=== PATIENT | male | born 1975 | race Caucasian/White ===

== ENCOUNTER → 2023-03-24 10:20 | Outpatient (BNVA) | payer OTHER, SELFPAY | PROVIDERS: Family Provider Nurse Practitioner; PCP Nurse Practitioner; Referring Provider Family Medicine; Visit Provider Surgery | DX: Z12.11 Encounter for screening for malignant neoplasm of colon (principal) | CPT/HCPCS: 99203 ==

== ENCOUNTER 2023-06-25 09:34 | Day surgery (SDC) | payer OTHER, SELFPAY ==
[2023-06-25 09:51] VITALS: BP 157/93; PULSE 79; RESP 18; TEMP 36.8; O2SAT 99; BMI 34.5
[2023-06-25] MEDS: sodium chloride 0.9% 1,000 ML 30 ML IV (09:56)
--- NOTE | 2023-06-25 10:00 | ANES.PREANE2 ---
Pre-Anesthetic Assessment Height/Weight: Height 1.68 m Weight 97.069 kg Temp Pulse Resp BP Pulse Ox O2 Del Method 98.2 F 79 18 157/93 99 Room Air 06/25/23 09:51 06/25/23 09:51 06/25/23 09:51 06/25/23 09:51 06/25/23 09:51 06/25/23 09:51 Preop Diagnosis: need for colon cancer screening Operation Date: 06/25/23 11:00 Proposed Procedures p [id number] colon G0121 screen colon A risk Z12.11(Not Applicable) - Chuy Paredes MD Familial anesthetic complications: None Was Beta Blanca taken within 24 hours: N/A Was Clonidine taken within 24 hours: N/A Last intake: Intake Last Liquid Date 06/24/23 Last Liquid Time 23:45 Last Solid Date 06/23/23 Last Solid Time 18:30 Social No alcohol and No tobacco Exam alert, oriented x 3 and regular rate & rhythm Airway Mallampati: Class II Dentition: full History/ROS No significant history except as noted Pulmonary None reported CV/HEM Hypertension None reported Hepatic None reported GI Gastroesophageal Reflux Disease (occasional, related to diet) Metabolic None reported Musc/skel None reported Neuropsych None reported Anesthetic Plan ASA status: 2 Anesthesia: Anesthesia Evaluation and MAC Risk of > 500 ml blood loss (7ml/kg in children): No Medications/Allergies Home Medications Medication Instructions Recorded Confirmed Last Taken Type fexofenadine 30 mg tablet 120 mg PO Q24H 06/25/23 06/25/23 06/23/23 History garlic 300 mg PO DAILY 06/25/23 06/25/23 06/23/23 History multivitamin 1 tab PO DAILY 06/25/23 06/25/23 06/23/23 History zinc 10 mg tablet 10 mg PO DAILY 06/25/23 06/25/23 06/23/23 History Allergies Allergy/AdvReac Type Severity Reaction Status Date / Time shellfish derived Allergy swelling Verified 06/23/23 08:41 Current Medications Generic Name Dose Route Start Last Admin Trade Name Freq PRN Reason Stop Dose Admin Sodium Chloride 1,000 mls @ 30 mls/hr 06/25/23 09:45 06/25/23 09:56 Sodium Chloride 0.9% IV 30 mls/hr .Q24H SHAMAR Administration PFSH Anesthesia Medical History Allergic rhinitis due to allergen Acute pharyngitis Social History Smoking and tobacco/nicotine status: never used tobacco/nicotine Alcohol intake: never Substance/Drug Use: never Data Anesthesia Cardiac Studies: No Data to Display
--- NOTE | 2023-06-25 10:14 | P.HP_ITS ---
Same Day Surgery H&P Indication for Procedure/HPI DATE OF PROCEDURE: June 25, 2023 CHIEF COMPLAINT/INDICATIONFOR SURGICAL PROCEDURE: screening colonoscopy PREOP DIAGNOSIS: need for colon cancer screening PLANNED PROCEDURE: Operation Date: 06/25/23 11:00 Proposed Procedures p [id number] colon G0121 screen colon A risk Z12.11(Not Applicable) - Chuy rosenthal MD Medications/Allergies* Home Medications Medication Instructions Recorded Confirmed Type fexofenadine 30 mg tablet 120 mg PO Q24H 06/25/23 06/25/23 History garlic 300 mg PO DAILY 06/25/23 06/25/23 History multivitamin 1 tab PO DAILY 06/25/23 06/25/23 History zinc 10 mg tablet 10 mg PO DAILY 06/25/23 06/25/23 History Allergies/Adverse Reactions Allergy/AdvReac Type Severity Reaction Status Date / Time shellfish derived Allergy swelling Verified 06/23/23 08:41 Current Medications: Generic Name Dose Route Start Last Admin Trade Name Freq PRN Reason Stop Dose Admin Sodium Chloride 1,000 mls @ 30 mls/hr 06/25/23 09:45 06/25/23 09:56 Sodium Chloride 0.9% IV 30 mls/hr .Q24H SHAMAR Administration Pertinent History/Comorbid Conditions* Medical History (Updated 06/10/22 @ 13:22 by Santos Mccarty MD) Allergic rhinitis due to allergen Acute pharyngitis Social History Smoking and tobacco/nicotine status: never used tobacco/nicotine Alcohol intake: never Substance/Drug Use: never Pertinent Exam Findings alert, oriented x 3, clear to auscultation bilaterally, regular rate & rhythm and operative site marked Recommendations Surgery/Procedure today Coding Level of Care Code Acute Code for Chg Fwd
[2023-06-25 10:51] VITALS: BP 130/83; PULSE 69; RESP 12; TEMP 36.1; O2SAT 98
[2023-06-25 11:01] VITALS: BP 122/88; PULSE 78; RESP 16; O2SAT 97
[2023-06-25 11:11] VITALS: BP 123/93; PULSE 74; RESP 16; O2SAT 98
--- NOTE | 2023-06-25 11:30 | ANE.PACU2 ---
Inpatient post-anesthesia follow up: Airway intact: Yes Vital signs: Temperature 97 F Pulse Rate 74 Respiratory Rate 16 Blood Pressure 123/93 Pulse Oximetry 98 Oxygen Delivery Me thod Room Air Oxygen Flow Rate Fraction of Inspir ed Oxygen Hydration adequate: Yes Nausea and vomiting: No Pain level: 1 Mental status: Baseline
== END 2023-06-25 11:30 | disposition home or self-care (01) ==
PROVIDERS: PCP Family Medicine; Visit Provider Surgery
PROC: 0DJD8ZZ Inspection of Lower Intestinal Tract, Via Natural or Artificial Opening Endoscopic (ICD-10-PCS; CPT 45378; principal; 2023-06-25 11:00)
DX: Z12.11 Encounter for screening for malignant neoplasm of colon (principal); K64.8 Other hemorrhoids; D12.0 Benign neoplasm of cecum; K21.9 Gastro-esophageal reflux disease without esophagitis; I10 Essential (primary) hypertension
CPT/HCPCS: 45384; 45385; 88305; J2704; J7030

== ENCOUNTER → 2023-07-08 08:35 | Outpatient (BNVA) | payer OTHER, SELFPAY | PROVIDERS: PCP Family Medicine; Visit Provider Surgery | DX: Z09 Encounter for follow-up examination after completed treatment for conditions other than malignant neoplasm (principal) | CPT/HCPCS: 99213 ==

== ENCOUNTER → 2024-06-30 08:30 | Outpatient (BNVA) | payer SELFPAY | PROVIDERS: PCP Family Medicine; Visit Provider Family Medicine | DX: Z02.4 Encounter for examination for driving license (principal) | CPT/HCPCS: 81000 ==